=== PATIENT | male | born 1990 | race Caucasian/White ===

== ENCOUNTER 2018-07-02 11:32 | Emergency (ER) | payer BC, OTHER ==
--- NOTE | 2018-07-02 11:48 | ED ---
HPI Chest Pain - HPI Summary HPI Summary: This patient is a 28 year old M presenting to [facility] with a chief complaint of intermittent left sided CP since 09:30, after waking up. The patient rates the pain 1/10 in severity. Symptoms aggravated by activity. Patient reports pain with breathing. Patient denies SOB, nausea, vomiting, dizziness, or diarrhea. He feels the pain more while walking around. He has not had this pain before. No PMHx HTN, Diabetes, HLD. SHX EtOH use, rare. No SHx tobacco use, drug use. No FHx [place] <35 yo. RX none. - History of Current Complaint Chief Complaint: EDChestPainROMI Time Seen by Provider: 07/02/18 11:39 Hx Obtained From: Patient Onset/Duration: Started Hours Ago - 2 Timing: Intermittent Current Severity: Mild Pain Intensity: 1 Pain Scale Used: 0-10 Numeric Chest Pain Location: Left Anterior Aggravating Factor(s): Exertion, Deep Breaths Alleviating Factor(s): Rest Associated Signs and Symptoms: Positive: Chest Pain - Allergy/Home Medications Allergies/Adverse Reactions: Allergies Allergy/AdvReac Type Severity Reaction Status Date / Time Penicillins Allergy Unknown Verified 07/02/18 11:34 Reaction Details PMH/Surg Hx/FS Hx/Imm Hx Endocrine/Hematology History: Denies: Hx Diabetes Cardiovascular History: Denies: Hx Hypercholesterolemia, Hx Hypertension Neurological History: Denies: Other Neuro Impairments/Disorders Infectious Disease History: No Infectious Disease History: Denies: Traveled Outside the [place] in Last 30 Days - Family History Known Family History: Negative: Cardiac Disease - [place] - Social History Alcohol Use: Rare Substance Use Type: Reports: None Smoking Status (MU): Never Smoked Tobacco Review of Systems Positive: Chest Pain Positive: Other - pain with breathing. Negative: Shortness Of Breath Negative: Vomiting, Diarrhea, Nausea Neurological: Negative - dizzyness All Other Systems Reviewed And Are Negative: Yes Physical Exam - Summary Physical Exam Summary: VITAL SIGNS: Reviewed. GENERAL: Patient is a well-developed and nourished male who is lying comfortable in the stretcher. Patient is not in any acute respiratory distress. HEAD AND FACE: No signs of trauma. No ecchymosis, hematomas or skull depressions. No sinus tenderness. EYES: PERRLA, EOMI x 2, No injected conjunctiva, no nystagmus. EARS: Hearing grossly intact. Ear canals and tympanic membranes are within normal limits. MOUTH: Oropharynx within normal limits. NECK: Supple, trachea is midline, no adenopathy, no JVD, no carotid bruit, no c- spine tenderness, neck with full ROM. CHEST: Symmetric, reproducible pain on the left side. LUNGS: Clear to auscultation bilaterally. No wheezing or crackles. CVS: Regular rate and rhythm, S1 and S2 present, no murmurs or gallops appreciated. ABDOMEN: Soft, non-tender. No signs of distention. No rebound no guarding, and no masses palpated. Bowel sounds are normal. EXTREMITIES: FROM in all major joints, no edema, no cyanosis or clubbing. NEURO: Alert and oriented x 3. No acute neurological deficits. Speech is normal and follows commands. SKIN: Dry and warm Triage Information Reviewed: Yes Vital Signs On Initial Exam: Initial Vitals Temp Pulse Resp BP Pulse Ox 97.8 F 75 15 141/79 99 07/02/18 11:34 07/02/18 11:34 07/02/18 11:34 07/02/18 11:34 07/02/18 11:34 Vital Signs Reviewed: Yes Diagnostics - Vital Signs Vital Signs Temp Pulse Resp BP Pulse Ox 07/02/18 11:34 97.8 F 75 15 141/79 99 - Laboratory Result Diagrams: 07/02/18 12:00 07/02/18 12:00 Lab Statement: Any lab studies that have been ordered have been reviewed, and results considered in the medical decision making process. - Radiology CXR Radiology Interpretation Completed By: Radiologist Summary of Radiographic Findings: ED physician has reviewed this report. - EKG 11:44 Cardiac Rate: NL - 71 bpm EKG Rhythm: Sinus Rhythm ST Segment: Normal Summary of EKG Findings: Normal axis Chest Pain Course/Dx - Course Assessment/Plan: Patient is a 28-year-old male who presents to the emergency department with chief complaint of having chest pain. Pain is reproducible upon patient taking a deep breath. Patient has no past medical history of diabetes hypertension or dyslipidemia. CXR IMPRESSION: No radiographic evidence of acute cardiopulmonary disease. EKG shows a normal sinus rhythm with no ST elevations. Blood work without any significant abnormality, troponin 0.00. In the ED course the patient was given Toradol 30 mg IV the symptoms improved. Patient reports that all symptoms have resolved. Because the patient has no significant comorbidities and no family history of cardiovascular disease at his age the patient will be discharged home with follow up of PMD. I discussed all the findings and test results with the patient. Patient was instructed to return to the emergency room immediately if any of the symptoms return or worsens. Patient understands and agrees. Plan of care was discussed with the patient and patient understands and agrees. All questions were answered at patient satisfaction. There were no further complaints or concerns. PE before discharge: CVS: S1 and S2 present. No murmurs appreciated. Abdominal exam before discharge: Soft, non-tender. No signs of distention. No rebound no guarding, and no masses palpated. Bowel sounds are normal. Patient is alert and oriented x 3. Patient is hemodynamically stable. - Chest Pain Differential Diagnosis/HQI/PQRI: Acute [place], ACS, Angina, CHF, Chest Wall, GI Disease, Lower Respiratory Infection - Diagnoses Provider Diagnoses: Atypical chest pain Discharge - Sign-Out/Discharge Documenting (check all that apply): Patient Departure Patient Received Moderate/Deep Sedation with Procedure: No - Discharge Plan Condition: Stable Disposition: HOME Patient Education Materials: Chest Pain (ED) Referrals: [facility] [Outside] - 3 Days Additional Instructions: Please follow up with the [facility] in 2-3 days. RETURN TO THE ED FOR ANY WORSENING OR NEW SYMPTOMS. - Billing Disposition and Condition Condition: STABLE Disposition: Home - Attestation Statements Document Initiated by Arron: Yes Documenting Scribe: Rolando Walden Provider For Whom Arron is Documenting (Include Credential): Herminio Reilly MD Scribe Attestation: Rolando Cheatham scribed for Herminio Reilly MD on 07/02/18 at 1825. Scribe Documentation Reviewed: Yes Provider Attestation: The documentation as recorded by the Rolando good accurately reflects the service I personally performed and the decisions made by me, Herminio Reilly MD Status of Scribe Document: Viewed
[2018-07-02 12:11] LABS: ABS Basophils 0 10^3/ul (0-0.2); ABS Eosinophils 0.1 10^3/ul (0-0.6); ABS Lymphocytes 1.7 10^3/ul (1.0-4.8); ABS Monocytes 0.6 10^3/ul (0-0.8); ABS Neutrophils 4.5 10^3/ul (1.5-7.7); ABS Nucleated RBC 0 10^3/ul; Hematocrit 47 % (36-46); Mean Corpuscular HGB Conc 34 g/dL (31-36); Mean Corpuscular Hemoglobin 29 pg (27-31); Mean Corpuscular Volume 85 fL (80-94); Mean Platelet Volume 10.6 fL (7.4-10.4); Nucleated Red Blood Cells % 0.1; Platelet Count 211 10^3/uL (150-450); Red Blood Count 5.58 10^6 /uL (4.18-5.48); Red Cell Distribution Width 14 % (10.5-15); White Blood Count 6.9 10^3/uL (3.5-10.8)
[2018-07-02 12:23] VITALS: BP 122/74
[2018-07-02 12:32] LABS: Albumin 4.5 g/dL (3.2-5.2); Albumin/Globulin Ratio 1.6 (1-3); BUN/Creatinine Ratio 12.6 (8-20); Calcium 9.7 mg/dL (8.6-10.3); EGFR African American 104.8 (>60); EGFR Non-African American 86.6 (>60); Globulin 2.9 g/dL (2-4); Potassium 4.1 mmol/L (3.5-5.0); Total Bilirubin 0.8 mg/dL (0.2-1.0); Total Protein 7.4 g/dL (6.4-8.9)
[2018-07-02] MEDS ORDERED: Ketorolac INJ* 30 MG/ML 1 ML VIAL IV PUSH ONE (12:46)
[2018-07-02 13:51] LABS: TSH (Thyroid Stimulating Horm) 1.53 mcIU/mL (0.34-5.60)
== END 2018-07-02 13:21 | disposition home or self-care (01) ==
LOC: ED 11:32
DX: R07.89 Other chest pain (principal); Z88.0 Allergy status to penicillin
CPT/HCPCS: 36415; 71046; 80053; 82550; 82553; 83605; 84443; 84484; 85025; 93005; 96374; 99283; J1885